=== PATIENT | female | born 1990 | race Caucasian/White ===

== ENCOUNTER 2019-03-12 19:24 | Emergency (ER) | payer OTHER ==
[~2019-03-12] VITALS: Ht 152.4 cm; Wt 99.8 kg
[2019-03-12 19:33] VITALS: Ht 152.4 cm; Wt 99.8 kg
[2019-03-12 20:08] LABS: BASOPHIL % 1.3 % (0-2); PLATELET COUNT 350 x10^3mcL (130-400); RED CELL DISTRIBUTION WIDTH 14.4 % (11.5-14.5)
[2019-03-12 20:30] LABS: CARBON DIOXIDE 25.4 mmol/L (21-32); CHLORIDE SERUM 103 mmol/L (98-107); CREATININE SERUM 0.7 mg/dL (0.6-1.0); GFR1 > 60 mL/min; GLUCOSE SERUM 89 mg/dL (74-106); POTASSIUM SERUM 3.9 mmol/L (3.5-5.1); SODIUM SERUM 139 mmol/L (136-145); TOTAL PROTEIN, SERUM 8.1 g/dL (6.4-8.2)
[2019-03-12 20:31] LABS: ALBUMIN 3.8 g/dL (3.4-5.0); ALKALINE PHOSPHATASE 112 U/L (46-116); ALT/SGPT 22 U/L (14-59); AST/SGOT 15 U/L (15-37); BILIRUBIN TOTAL 0.27 mg/dL (0.20-1.00); MAGNESIUM 2.3 mg/dL (1.8-2.4)
[2019-03-12 21:13] VITALS: BP 113/63
== END 2019-03-12 21:13 | disposition home or self-care (01) ==
LOC: ED 19:24
PROVIDERS: Emergency Medicine
DX: G40.909 Epilepsy, unspecified, not intractable, without status epilepticus (principal); Z88.5 Allergy status to narcotic agent
CPT/HCPCS: J1953; J2060; J2405

== ENCOUNTER 2019-03-13 18:43 | Emergency (ER) | payer OTHER ==
[2019-03-13 20:12] LABS: BASOPHIL % 0.7 % (0-2); PLATELET COUNT 357 x10^3mcL (130-400); RED CELL DISTRIBUTION WIDTH 14.5 % (11.5-14.5)
[2019-03-13 20:26] LABS: CARBON DIOXIDE 24.9 mmol/L (21-32); CHLORIDE SERUM 104 mmol/L (98-107); CREATININE SERUM 0.7 mg/dL (0.6-1.0); GFR1 > 60 mL/min; GLUCOSE SERUM 87 mg/dL (74-106); SODIUM SERUM 140 mmol/L (136-145); TOTAL PROTEIN, SERUM 7.8 g/dL (6.4-8.2)
[2019-03-13 20:27] LABS: ALBUMIN 3.5 g/dL (3.4-5.0); ALKALINE PHOSPHATASE 117 U/L (46-116); ALT/SGPT 22 U/L (14-59); AST/SGOT 16 U/L (15-37); BILIRUBIN TOTAL 0.31 mg/dL (0.20-1.00)
[2019-03-13 22:28] VITALS: BP 115/75
== END 2019-03-13 22:28 | disposition home or self-care (01) ==
LOC: ED 18:43
PROVIDERS: Emergency Medicine
DX: R56.9 Unspecified convulsions (principal); R11.0 Nausea; R42 Dizziness and giddiness; Z88.8 Allergy status to other drugs, medicaments and biological substances
CPT/HCPCS: J1953; J2405; J7030